=== PATIENT | male | born 1950 | race Caucasian/White ===

== ENCOUNTER 2018-09-19 10:45 | Day surgery (SDC) | payer OTHER, SELFPAY ==
[2018-09-19 11:24] VITALS: BP 118/80; PULSE 86; RESP 17; TEMP 36.6; O2SAT 99; BMI 27.1
[2018-09-19] MEDS: SODIUM CHLORIDE 0.9% 1,000 ML 200 ML IV (11:42)
[2018-09-19] MEDS: MIDAZOLAM 5 MG/5 ML VIAL IV (12:00)
[2018-09-19] MEDS: fentaNYL 250 MCG/5 ML INJ IV (12:01)
[2018-09-19 12:20] VITALS: BP 119/86; PULSE 69; RESP 14; O2SAT 96
[2018-09-19 12:25] VITALS: BP 122/85; PULSE 68; RESP 13; O2SAT 95
[2018-09-19 12:30] VITALS: TEMP 37.6
[2018-09-19 12:33] VITALS: BP 116/86; PULSE 68; RESP 20; O2SAT 97
[2018-09-19 12:48] VITALS: BP 104/75; PULSE 64; RESP 16; TEMP 36.9; O2SAT 97
--- NOTE | 2018-09-19 17:25 | HP_ITS ---
DATE OF SERVICE: September 19, 2018. HISTORY OF PRESENT ILLNESS: The patient is coming in for an elective colonoscopy. He is 68 years old. He has had a previous colonoscopy about 15 years ago with no polyps noted. He denies diabetes, heart disease, or hypertension. MEDICATIONS: He takes no medications. ALLERGIES: HONEYBEES AND PENICILLIN. REVIEW OF SYSTEMS: Negative for chest pain, unusual shortness of breath, melena, hematochezia, problems, or neurologic problems. PHYSICAL EXAMINATION VITAL SIGNS: Blood pressure is 118/80, heart rate in the 80s. HEENT: Normal. NECK: No adenopathy. LUNGS: Clear. HEART: Regular rhythm. No murmur. ABDOMEN: Soft. No organomegaly. No tenderness. RECTAL: Rectal exam will be done at the time of the colonoscopy. DIAGNOSIS: Screening colonoscopy. Jourdan Ho - Maryjane/ts doc#: [id number]/job#: [id number] dd: 09/19/2018 11:45:00 dt: 09/19/2018 17:16:00 DICTATING /COPIES TO: Etienne Gonzalez MD COPIES MNE: MARIA DEL CARMEN
--- NOTE | 2018-09-20 07:37 | OP_ITS ---
DATE OF SERVICE: 09/19/2018 PREOP DIAGNOSIS: Screening colonoscopy. POSTOP DIAGNOSIS: Severe left colonic sigmoid and left colonic diverticulosis. No diverticulitis. OPERATION: Total colonoscopy to the cecum. SURGEON: Etienne Gonzalez MD DESCRIPTION OF PROCEDURE: The patient was properly identified during surgical pause. Flexible fiberoptic colonoscope inserted transanally to the cecum. He was given conscious sedation with Versed and fentanyl. The patient has severe left colonic diverticulosis involving the sigmoid and entire left colon. Huge diverticula scattered throughout. These were photographed. Passing the scope clear to the cecum, and with slowly withdrawing it, revealed no tumors, no polyps. The procedure was well tolerated. I believe he got a total of 4 of Versed and 200 of fentanyl. Jourdan Ho - Maryjane/daly doc#: [id number]/job#: [id number] dd: 09/19/2018 12:22:00 dt: 09/20/2018 07:25:00 DICTATING MD/COPIES TO: Etienne Gonzalez MD COPIES MNE: MARIA DEL CARMEN
== END 2018-09-19 13:00 | disposition home or self-care (01) ==
PROVIDERS: Visit Provider Surgery
PROC: 0DJD8ZZ Inspection of Lower Intestinal Tract, Via Natural or Artificial Opening Endoscopic (ICD-10-PCS; CPT 45378; principal; 2018-09-19 11:45)
DX: Z12.11 Encounter for screening for malignant neoplasm of colon (principal); K57.30 Diverticulosis of large intestine without perforation or abscess without bleeding
CPT/HCPCS: 45378; J2250; J3010

== ENCOUNTER → 2019-04-13 08:56 | Outpatient (CLI) | payer OTHER, SELFPAY ==
[2019-04-13 10:18] LABS: Add Manual Diff / Slide Review NO; Basophils Absolute Auto 0 /uL (0-100); Basophils Percent Auto 0.8 % (0-2); Eosinophils Absolute Auto 100 /uL (0-450); Eosinophils Percent Auto 2.3 % (2-4); Hematocrit 45.3 % (41-53); Hemoglobin 15.5 g/dL (13.5-17.5); Lymphocytes Absolute Auto 1500 /uL (1100-4500); Lymphocytes Percent Auto 26.1 % (25-40); Mean Corpuscular HGB Conc 34.2 % (30-36); Mean Corpuscular Hemoglobin 29.9 PG (26-34); Mean Corpuscular Volume 87.4 fL (80-100); Monocytes Absolute Auto 700 /uL (0-900); Monocytes Percent Auto 11.9 % (3-14); Neutrophils Absolute Auto 3500 /uL (1500-7000); Neutrophils Percent Auto 58.9 % (50-75); Platelet Count 183 X10^3/uL (150-400); Red Blood Cell Count 5.19 X10^6/uL (4.5-5.9); Red Cell Distribution Width 13.2 % (11.6-14.8); White Blood Cell Count 5.9 X10^3/uL (4.5-11.0)
[2019-04-13 10:24] LABS: Appearance Urine UA CLEAR; Bilirubin Urine UA NEGATIVE (NEGATIVE); Color Urine UA YELLOW; Glucose Urine UA NEGATIVE (Negative); Ketones Urine UA NEGATIVE (NEGATIVE); Leukocyte Esterase Urine UA NEGATIVE (NEGATIVE); Nitrite Urine UA NEGATIVE (Negative); Occult Blood Urine UA NEGATIVE (Negative); Protein Urine UA NEGATIVE (Negative); Specific Gravity Urine UA 1.025 (1.000-1.035); Urobilinogen Urine UA 0.2 E.U./dL (0.2)
[2019-04-13 10:56] LABS: Alanine Aminotransferase 16 IU/L (21-72); Albumin 4.4 g/dL (3.5-5.0); Albumin Globulin Ratio 1.3 (1.0-2.8); Alkaline Phosphatase 66 U/L (38-126); Aspartate Aminotransferase 27 IU/L (17-59); BUN Creatinine Ratio 17.8 (6-22); Bilirubin Total 1.1 mg/dL (0.2-1.3); Blood Urea Nitrogen 16 mg/dL (9-20); Calcium 9.5 mg/dL (8.4-10.2); Carbon Dioxide 31 mmol/L (22-32); Chloride 101 mmol/L (98-107); Cholesterol 162 mg/dL (140-199); Estimated Glomerular Filt Rate > 60.0 mL/min (>60); Globulin 3.3 g/dL (1.7-4.1); Glucose 88 mg/dL (80-110); HDL Cholesterol 39 mg/dL (40-60); HEMOLYSIS 29 (0-50); LDL Cholesterol Calculated 83 mg/dL (<100); Potassium 4.4 mmol/L (3.4-5.1); Sodium 141 mmol/L (137-145); Total Protein 7.7 g/dL (6.3-8.2); Triglycerides 201 mg/dL (35-150)
[2019-04-13 11:13] LABS: Thyroid Stimulating Hormone 3.48 uIU/mL (0.47-4.68)
[2019-04-13 11:14] LABS: Prostate Specific Antigen 0.862 ng/mL (0.10-4.00)
== END ==
PROVIDERS: PCP Family Medicine; Visit Provider Family Medicine
DX: Z00.00 Encounter for general adult medical examination without abnormal findings (principal); Z13.220 Encounter for screening for lipoid disorders; F32.9 Major depressive disorder, single episode, unspecified; K21.9 Gastro-esophageal reflux disease without esophagitis; Z12.5 Encounter for screening for malignant neoplasm of prostate; M54.5 Low back pain
CPT/HCPCS: 36415; 80053; 80061; 81003; 84153; 84443; 85025

== ENCOUNTER → 2020-09-08 11:49 | Outpatient (CLI) | payer OTHER, SELFPAY ==
[2020-09-08 13:21] LABS: Alanine Aminotransferase 19 IU/L (<50); Albumin 4.2 g/dL (3.5-5.0); Albumin Globulin Ratio 1.4 (1.0-2.8); Alkaline Phosphatase 71 U/L (38-126); Aspartate Aminotransferase 27 IU/L (17-59); BUN Creatinine Ratio 19.8 (6-22); Bilirubin Total 1.1 mg/dL (0.2-1.3); Blood Urea Nitrogen 20 mg/dL (9-20); Calcium 9.9 mg/dL (8.4-10.2); Carbon Dioxide 33 mmol/L (22-32); Chloride 103 mmol/L (98-107); Cholesterol 228 mg/dL (140-199); Estimated Glomerular Filt Rate > 60.0 mL/min (>60); Globulin 3.1 g/dL (1.7-4.1); Glucose 92 mg/dL (80-110); HDL Cholesterol 35 mg/dL (40-60); HEMOLYSIS < 15 (0-50); LDL Cholesterol Calculated 130 mg/dL (<100); Potassium 4.7 mmol/L (3.4-5.1); Sodium 137 mmol/L (137-145); Total Protein 7.3 g/dL (6.3-8.2); Triglycerides 313 mg/dL (35-150)
== END ==
PROVIDERS: PCP Family Medicine; Referring Provider Family Medicine; Visit Provider Family Medicine
DX: E78.2 Mixed hyperlipidemia (principal)
CPT/HCPCS: 36415; 80053; 80061

== ENCOUNTER → 2022-04-05 12:33 | Outpatient (CLI) | payer OTHER, SELFPAY ==
[2022-04-05 13:35] LABS: Add Manual Diff / Slide Review NO; Basophils Absolute Auto 0 /uL (0-100); Basophils Percent Auto 0.8 % (0-2); Eosinophils Absolute Auto 100 /uL (0-450); Hematocrit 44.6 % (41-53); Lymphocytes Absolute Auto 1700 /uL (1100-4500); Lymphocytes Percent Auto 29.3 % (25-40); Mean Corpuscular HGB Conc 33.7 % (30-36); Mean Corpuscular Hemoglobin 29.5 PG (26-34); Mean Corpuscular Volume 87.6 fL (80-100); Monocytes Absolute Auto 600 /uL (0-900); Monocytes Percent Auto 11.1 % (3-14); Neutrophils Absolute Auto 3400 /uL (1500-7000); Neutrophils Percent Auto 57.8 % (50-75); Platelet Count 191 X10^3/uL (150-400); Red Blood Cell Count 5.09 X10^6/uL (4.5-5.9); Red Cell Distribution Width 13.7 % (11.6-14.8); White Blood Cell Count 5.8 X10^3/uL (4.5-11.0)
[2022-04-05 14:05] LABS: Alanine Aminotransferase 18 IU/L (<50); Albumin 4.4 g/dL (3.5-5.0); Albumin Globulin Ratio 1.5 (1.0-2.8); Alkaline Phosphatase 62 U/L (38-126); Aspartate Aminotransferase 26 IU/L (17-59); BUN Creatinine Ratio 16.4 (6-22); Bilirubin Total 1.2 mg/dL (0.2-1.3); Blood Urea Nitrogen 19 mg/dL (9-20); Calcium 9.5 mg/dL (8.4-10.2); Carbon Dioxide 32 mmol/L (22-32); Chloride 101 mmol/L (98-107); Cholesterol 198 mg/dL (140-199); Estimated Glomerular Filt Rate > 60 mL/min (>60); Globulin 2.9 g/dL (1.7-4.1); Glucose 91 mg/dL (80-110); HDL Cholesterol 41 mg/dL (40-60); HEMOLYSIS < 15 (0-50); LDL Cholesterol Calculated 114 mg/dL (<100); Potassium 4.8 mmol/L (3.4-5.1); Sodium 141 mmol/L (137-145); Total Protein 7.3 g/dL (6.3-8.2); Triglycerides 217 mg/dL (35-150)
[2022-04-05 14:33] LABS: TSH w/ Reflex to FT4 2.91 uIU/mL (0.47-4.68)
[2022-04-05 14:34] LABS: Prostate Specific Antigen Scrn 0.848 ng/mL (0.1-4.0)
[2022-04-06 06:22] LABS: PSA Free % 42.5 % (.); PSA, Total 0.8 ng/mL (0.0-4.0)
== END ==
PROVIDERS: PCP Family Medicine; Referring Provider Family Medicine; Visit Provider Family Medicine
DX: E78.2 Mixed hyperlipidemia (principal); F32.9 Major depressive disorder, single episode, unspecified; K21.9 Gastro-esophageal reflux disease without esophagitis; Z12.5 Encounter for screening for malignant neoplasm of prostate; Z00.00 Encounter for general adult medical examination without abnormal findings
CPT/HCPCS: 36415; 80053; 80061; 84153; 84154; 84443; 85025; G0103